=== PATIENT | female | born 1940 | race Caucasian/White ===

== ENCOUNTER 2022-12-15 11:39 | Inpatient (IN) | payer MEDICARE ==
[2022-12-15] MEDS ORDERED: FUROSEMIDE 10 MG/ML 4 ML VIAL IV STA (11:54)
--- NOTE | 2022-12-15 11:57 | ED ---
General Adult HPI - General Chief complaint: Shortness of Breath Stated complaint: SOB, leg swelling Time Seen by Provider: 12/15/22 11:50 Source: patient, family, RN notes reviewed, old records reviewed Mode of arrival: wheelchair Limitations: no limitations - History of Present Illness Initial comments: This is an 82-year-old female who presents emergency part complaining of shortness of breath per patient states his been getting worse over the last few weeks. Patient also was noticed some increased swelling to the legs. Patient denies any fever chills or cough per patient denies any history breathing problem is. Patient states she's not on any medications and has no medical problems that she knows of. Patient states that she does not go to the doctor often however and may be the reason why she is not on any medications. Patient denies any chest pain but states she has some chest tightness. Patient denies any calf tenderness. Patient denies any headache patient denies lightheadedness or dizziness. - Related Data Home Medications Medication Instructions Recorded Confirmed No Known Home Medications 12/15/22 12/15/22 Allergies Allergy/AdvReac Type Severity Reaction Status Date / Time No Known Allergies Allergy Verified 12/15/22 12:52 Review of Systems ROS Statement: Those systems with pertinent positive or pertinent negative responses have been documented in the HPI. ROS Other: All systems not noted in ROS Statement are negative. Past Medical History Past Medical History: No Reported History History of Any Multi-Drug Resistant Organisms: None Reported Past Surgical History: Breast Surgery, Hysterectomy, Tonsillectomy Past Psychological History: No Psychological Hx Reported Smoking Status: Never smoker Past Alcohol Use History: None Reported Past Drug Use History: None Reported General Exam - General Exam Comments Initial Comments: GENERAL: Patient is well-developed and well-nourished. Patient is nontoxic and well- hydrated and is in mild distress. ENT: Neck is soft and supple. No significant lymphadenopathy is noted. Oropharynx is clear. Moist mucous membranes. Neck has full range of motion without elici ting any pain. EYES: The sclera were anicteric and conjunctiva were pink and moist. Extraocular m ovements were intact and pupils were equal round and reactive to light. Eyelids were unremarkable. PULMONARY: Unlabored respirations. Good breath sounds bilaterally. No audible rales rhonchi or wheezing was noted. CARDIOVASCULAR: Patient is tachycardic at 100 beats a minute ABDOMEN: Soft and nontender with normal bowel sounds. SKIN: Skin is clear with no lesions or rashes and otherwise unremarkable. NEUROLOGIC: Patient is alert and oriented x3. Cranial nerves II through XII are grossly intact. Motor and sensory are also intact. Normal speech, volume and content. Symmetrical smile. MUSCULOSKELETAL: Normal extremities with adequate strength and full range of motion. 1+ edema LYMPHATICS: No significant lymphadenopathy is noted PSYCHIATRIC: Normal psychiatric evaluation. Limitations: no limitations Course Vital Signs 12/15/22 12/15/22 12/15/22 11:42 14:07 14:18 Temperature 98.1 F Pulse Rate 103 H 73 76 Respiratory 18 Rate Blood Pressure 182/62 O2 Sat by Pulse 96 Oximetry Medical Decision Making - Medical Decision Making I interpreted EKG. EKG shows a sinus rhythm with occasional PACs at 93 bpm WI interval is 148 QRS is under QT interval 350 QTC is 402. Patient's EKG shows no ST segment elevation or depression. Was pt. sent in by a medical professional or institution (, PA, BOXING MACHINE OPERATOR, urgent care, hospital, or retirement...) When possible be specific @ -No Did you speak to anyone other than the patient for history (EMS, parent, family, police, friend...)? What history was obtained from this source @ -No Did you review nursing and triage notes (agree or disagree)? Why? @ -I reviewed and agree with nursing and triage notes Were old charts reviewed (outside hosp., previous admission, EMS record, old EKG, old radiological studies, urgent care reports/EKG's, retirement records)? Report findings @ -No old charts were reviewed Differential Diagnosis (chest pain, altered mental status, abdominal pain women, abdominal pain men, vaginal bleeding, weakness, fever, dyspnea, syncope, headache, dizziness, GI bleed, back pain, seizure, CVA, palpatations, mental health, musculoskeletal)? @ -Differential Dyspnea: Coronary syndrome, arrhythmia, tamponade, asthma, COPD, pulmonary embolism, pneumonia, pneumothorax, pulmonary effusion, anaphylaxis, diabetic ketoacidosis, flailed chest, pulmonary contusion, diaphragmatic rupture, anemia, neuromuscular, this is not meant to be an all-inclusive list. EKG interpreted by me (3pts min.). @ -As above X-rays interpreted by me (1pt min.). @ -Chest x-ray shows signs of COPD CT interpreted by me (1pt min.). @ -None done U/S interpreted by me (1pt. min.). @ -None done What testing was considered but not performed or refused? (CT, X-rays, U/S, labs)? Why? @ -None What meds were considered but not given or refused? Why? @ -None Did you discuss the management of the patient with other professionals (professionals i.e. , PA, BOXING MACHINE OPERATOR, lab, RT, psych nurse, marriage and family social worker, trial lawyer, teacher, chief lending officer, pillowcase maker)? Give summary @ -Spoke with the [facility] agreed to admit the patient to the patient wrote admitting orders Was smoking cessation discussed for >3mins.? @ -No Was critical care preformed (if so, how long)? @ -No Were there social determinants of health that impacted care today? How? (Homelessness, low income, unemployed, alcoholism, drug addiction, transportation, low edu. Level, literacy, decrease access to med. care, skilled nursing, rehab)? @ -No Was there de-escalation of care discussed even if they declined (Discuss DNR or withdrawal of care, Hospice)? DNR status @ -No What co-morbidities impacted this encounter? (DM, HTN, Smoking, COPD, CAD, Cancer, CVA, ARF, Chemo, Hep., AIDS, mental health diagnosis, sleep apnea, morbid obesity)? @ -None Was patient admitted / discharged? Hospital course, mention meds given and route, prescriptions, significant lab abnormalities, going to OR and other pertinent info. @ -Patient while in the emergency department started having a little bit of chest discomfort. Patient is insistent that she is retaining fluid that is why her abdomen appears be here to her there patient states her legs are also very edematous. He needed legs only had a very scant amount of edema and patient appeared in no distress while in the emergency department. Patient was uncomfortable going home because of this new dyspnea and shortness of breath. Niece was also very concerned about her dyspnea because the patient does not have a primary medical care doctor or button machine operator follow-up with. Patient received Lasix in the emergency department and she urinated quite a bit. Patient also received a breathing treatment which he stated did not help her at all. Undiagnosed new problem with uncertain prognosis? @ -No Drug Therapy requiring intensive monitoring for toxicity (Heparin, Nitro, Insulin, Cardizem)? @ -No Were any procedures done? @ -No Diagnosis/symptom? @ -Dyspnea Acute, or Chronic, or Acute on Chronic? @ -Acute on chronic Uncomplicated (without systemic symptoms) or Complicated (systemic symptoms)? @ -Complicated Side effects of treatment? @ -No Exacerbation, Progression, or Severe Exacerbation? @ -No Poses a threat to life or bodily function? How? (Chest pain, [place], [place], pneumonia, PE, COPD, DKA, ARF, appy, cholecystitis, CVA, Diverticulitis, Homicidal, Suicidal, threat to staff... and all critical care pts) @ -No Diagnosis/symptom? @ -Chest pain Acute, or Chronic, or Acute on Chronic? @ -Acute Uncomplicated (without systemic symptoms) or Complicated (systemic symptoms)? @ -Complicated Side effects of treatment? @ -none Exacerbation, Progression, or Severe Exacerbation] @ -no Poses a threat to life or bodily function? @ -Yes this could lead to poor ejection fraction and lead to end organ dysfunction - Lab Data Result diagrams: 12/15/22 12:18 12/15/22 12:18 Lab Results 12/15/22 12/15/22 12/15/22 Range/Units 12:18 12:18 12:18 WBC 9.2 (3.8-10.6) k/uL RBC 4.90 (3.80-5.40) m/uL Hgb 14.8 (11.4-16.0) gm/dL Hct 42.0 (34.0-46.0) % MCV 85.6 (80.0-100.0) fL MCH 30.1 (25.0-35.0) pg MCHC 35.2 (31.0-37.0) g/dL RDW 13.0 (11.5-15.5) % Plt Count 197 (150-450) k/uL MPV 7.6 Neutrophils % 78 % Lymphocytes % 15 % Monocytes % 4 % Eosinophils % 0 % Basophils % 1 % Neutrophils # 7.2 (1.3-7.7) k/uL Lymphocytes # 1.4 (1.0-4.8) k/uL Monocytes # 0.4 (0-1.0) k/uL Eosinophils # 0.0 (0-0.7) k/uL Basophils # 0.0 (0-0.2) k/uL PT 10.5 (9.0-12.0) sec INR 1.0 (<1.2) APTT 23.3 (22.0-30.0) sec D-Dimer 0.57 (<0.60) mg/L FEU Sodium 139 (137-145) mmol/L Potassium 3.9 (3.5-5.1) mmol/L Chloride 104 (98-107) mmol/L Carbon Dioxide 30 (22-30) mmol/L Anion Gap 5 mmol/L BUN 14 (7-17) mg/dL Creatinine 0.69 (0.52-1.04) mg/dL Est GFR (CKD-EPI)AfAm >90 (>60 ml/min/1.73 sqM) Est GFR (CKD-EPI)NonAf 82 (>60 ml/min/1.73 sqM) Glucose 112 H (74-99) mg/dL Plasma Lactic Acid Bony (0.7-2.0) mmol/L Calcium 9.3 (8.4-10.2) mg/dL Magnesium 1.9 (1.6-2.3) mg/dL Total Bilirubin 0.3 (0.2-1.3) mg/dL AST 25 (14-36) U/L ALT 21 (4-34) U/L Alkaline Phosphatase 135 H (38-126) U/L Troponin I (0.000-0.034) ng/mL NT-Pro-B Natriuret Pep pg/mL Total Protein 7.2 (6.3-8.2) g/dL Albumin 4.2 (3.5-5.0) g/dL 12/15/22 12/15/22 12/15/22 Range/Units 12:18 12:18 12:18 WBC (3.8-10.6) k/uL RBC (3.80-5.40) m/uL Hgb (11.4-16.0) gm/dL Hct (34.0-46.0) % MCV (80.0-100.0) fL MCH (25.0-35.0) pg MCHC (31.0-37.0) g/dL RDW (11.5-15.5) % Plt Count (150-450) k/uL MPV Neutrophils % % Lymphocytes % % Monocytes % % Eosinophils % % Basophils % % Neutrophils # (1.3-7.7) k/uL Lymphocytes # (1.0-4.8) k/uL Monocytes # (0-1.0) k/uL Eosinophils # (0-0.7) k/uL Basophils # (0-0.2) k/uL PT (9.0-12.0) sec INR (<1.2) APTT (22.0-30.0) sec D-Dimer (<0.60) mg/L FEU Sodium (137-145) mmol/L Potassium (3.5-5.1) mmol/L Chloride (98-107) mmol/L Carbon Dioxide (22-30) mmol/L Anion Gap mmol/L BUN (7-17) mg/dL Creatinine (0.52-1.04) mg/dL Est GFR (CKD-EPI)AfAm (>60 ml/min/1.73 sqM) Est GFR (CKD-EPI)NonAf (>60 ml/min/1.73 sqM) Glucose (74-99) mg/dL Plasma Lactic Acid Bony 1.3 (0.7-2.0) mmol/L Calcium (8.4-10.2) mg/dL Magnesium (1.6-2.3) mg/dL Total Bilirubin (0.2-1.3) mg/dL AST (14-36) U/L ALT (4-34) U/L Alkaline Phosphatase (38-126) U/L Troponin I <0.012 (0.000-0.034) ng/mL NT-Pro-B Natriuret Pep 91 pg/mL Total Protein (6.3-8.2) g/dL Albumin (3.5-5.0) g/dL Disposition Clinical Impression: Dyspnea, Chest pain Disposition: ADMITTED IP TO THIS HOSP Referrals: None,Stated [Primary Care Provider] - 1-2 days Time of Disposition: 14:45
[2022-12-15 12:43] LABS: Basophils % (A) 1 %; Eosinophils % (A) 0 %; HGB 14.8 gm/dL (11.4-16.0); Lymphocytes # (A) 1.4 k/uL (1.0-4.8); Lymphocytes % (A) 15 %; MCH 30.1 pg (25.0-35.0); MCHC 35.2 g/dL (31.0-37.0); MCV 85.6 fL (80.0-100.0); Mean Platelet Volume 7.6; Monocytes # (A) 0.4 k/uL (0-1.0); Monocytes % (A) 4 %; Neutrophils # (A) 7.2 k/uL (1.3-7.7); Neutrophils % (A) 78 %; Platelet Count 197 k/uL (150-450); WBC 9.2 k/uL (3.8-10.6)
--- NOTE | 2022-12-15 12:47 | XR ---
EXAMINATION TYPE: XR chest 2V DATE OF EXAM: 12/15/2022 COMPARISON: NONE HISTORY: Difficulty in breathing. TECHNIQUE: Frontal and lateral views of the chest are obtained. FINDINGS: Background chronic emphysematous change is present. There is no focal air space opacity, p leural effusion, or pneumothorax seen. The cardiac silhouette size is within normal limits. The os seous structures are demineralized. Overlying EKG leads are seen. IMPRESSION: Chronic emphysematous change without acute pulmonary process.
[2022-12-15 12:48] LABS: ALT 21 U/L (4-34); AST 25 U/L (14-36); African American GFR (CKD) >90 (>60 ml/min/1.73 sqM); Albumin 4.2 g/dL (3.5-5.0); Alkaline Phosphatase 135 U/L (38-126); Anion Gap 5 mmol/L; Blood Urea Nitrogen 14 mg/dL (7-17); Calcium 9.3 mg/dL (8.4-10.2); Carbon Dioxide 30 mmol/L (22-30); Chloride 104 mmol/L (98-107); Glucose 112 mg/dL (74-99); Magnesium 1.9 mg/dL (1.6-2.3); Non-African American GFR(CKD) 82 (>60 ml/min/1.73 sqM); Potassium 3.9 mmol/L (3.5-5.1); Sodium 139 mmol/L (137-145); Total Bilirubin 0.3 mg/dL (0.2-1.3); Total Protein 7.2 g/dL (6.3-8.2)
[2022-12-15 12:52] LABS: Partial Thromboplastin Time 23.3 sec (22.0-30.0); Prothrombin Time 10.5 sec (9.0-12.0)
[2022-12-15] MEDS ORDERED: IPRATROPIUM-ALBUTEROL 3 ML NEB INHALATION STA (13:29)
[2022-12-15] MEDS ORDERED: ASPIRIN 81 MG PO STA (15:05)
[2022-12-15] MEDS ORDERED: NITROGLYCERIN SL TABS 0.4 MG TAB SUBLINGUAL PRN (15:05)
[2022-12-15] MEDS: NITROGLYCERIN OINT 1 INCH/GM PACKET TOPICAL SCH (18:04)
[2022-12-15] MEDS ORDERED: IPRATROPIUM-ALBUTEROL 3 ML NEB INHALATION PRN (20:35)
--- NOTE | 2022-12-15 20:35 | P.HPIM ---
History of Present Illness H&P Date: 12/15/22 Chief Complaint: Shortness of breath Patient is a 82-year-old female without significant past medical history presents to ER with complaints of shortness of breath with activity and lightheadedness for the past 1 month. She was also complaining of leg swelling bilaterally when she sits for a long time in the couch but improves with lying down. Shortness of breath associate with chest tightness and fullness. Patient also states that she gained weight for the past few weeks and is also feels like abdominal girth is increased. Complains of lightheadedness. No dizziness. Denies any GERD symptoms. No chest pain. Denied any recent illnesses. No calf tenderness. Denies any palpitations. Patient is not on follow-up with primary care physician at this time. Denies any fever or chills. No cough or sputum production. No prior history of smoking. Chest x-ray showed chronic emphysematous changes without acute pulmonary process. EKG showed sinus rhythm with occasional supraventricular premature complexes. Laboratory test showed WBC 9.2 hemoglobin 14.8 and platelets 197 D-dimer is 0.57, BUN 14 and creatinine 0.69, alk phos 135, AST 25 ALT 21 and proBNP 91. Troponin x2 negative, albumin 4.2 Review of Systems Constitutional: Patient denies any fever or chills . no Generalized weakness. Abdomen: Patient denied any nausea or vomiting or abd. pain Cardiovascular: Patient denies any chest pain or short of breath no palpitations. Intermittent leg swelling. Respiratory: patient denied any cough . no sputum production. Exertional shortness of breath Neurologic: Patient denied any numbness or tingling headache. Musculoskeletal: Patient denies any complaints of joint swelling or deformity. Skin: Negative Psychiatric: Negative Endocrine: No heat or cold intolerance. No recent weight gain. Genitourinary: No dysuria or hematuria. All other 14 point ROS negative except the above Past Medical History Past Medical History: No Reported History History of Any Multi-Drug Resistant Organisms: None Reported Past Surgical History: Breast Surgery, Hysterectomy, Tonsillectomy Past Psychological History: No Psychological Hx Reported Smoking Status: Never smoker Past Alcohol Use History: None Reported Past Drug Use History: None Reported Medications and Allergies Home Medications Medication Instructions Recorded Confirmed Type No Known Home Medications 12/15/22 12/15/22 History Allergies Allergy/AdvReac Type Severity Reaction Status Date / Time No Known Allergies Allergy Verified 12/15/22 12:52 Physical Exam Vitals: Vital Signs Temp Pulse Resp BP Pulse Ox 12/15/22 19:39 89 18 138/81 94 L 12/15/22 18:00 98 22 100/59 98 12/15/22 14:18 76 12/15/22 14:07 73 12/15/22 14:00 116 H 18 136/125 96 12/15/22 12:13 27 H 12/15/22 11:42 98.1 F 103 H 18 182/62 96 Intake and Output 12/15/22 12/15/22 12/15/22 06:59 14:59 22:59 Other: Weight 67.132 kg PHYSICAL EXAMINATION: Patient is lying in the bed comfortably, no acute distress, awake alert and oriented.. HEENT: Normocephalic. Neck is supple. Pupils reactive. Nostrils clear. Oral cavity is moist. Neck reveals no JVD, carotid bruits, or thyromegaly. CHEST EXAMINATION: Trachea is central. Symmetrical expansion. Bibasilar prolonged expiration. No wheezing or rhonchi. Nonlabored breathing.. CARDIAC: Normal S1, S2 with no gallops. No murmurs ABDOMEN: Soft. Bowel sounds present. Nontender. No organomegaly. No abdominal bruits. Extremities: reveal trace bilateral pedal edema. No clubbing or cyanosis Neurologically awake, alert, oriented x3 with well-coordinated movements. No focal deficits noted Skin: No rash or skin lesions. Psychiatric: Coperative. Nonsuicidal, Musculoskeletal: No joint swelling or deformity. Normal range of motion. Results CBC & Chem 7: 12/15/22 12:18 12/15/22 12:18 Labs: Abnormal Lab Results - Last 24 Hours (Table) 12/15/22 Range/Units 12:18 Glucose 112 H (74-99) mg/dL Alkaline Phosphatase 135 H (38-126) U/L Thrombosis Risk Factor Assmnt - DVT/VTE Prophylaxis DVT/VTE Prophylaxis: Pharmacologic Prophylaxis ordered Assessment and Plan Assessment: Exertional dyspnea and lightheadedness. Rule out cardiac etiology. Emphysematous changes in the lungs as per chest x-ray. Elevated blood pressure on admission. Improved now. DVT prophylaxis with heparin subcu Plan: Patient will be continued on telemetry monitoring. Was given a dose of IV Lasix in the ER. Patient did have improvement in the leg swelling. proBNP is 91 and D-dimer level is 0.57. Chest x-ray showing emphysematous changes and has no prior history of smoking. Started on DuoNebs as needed Ultrasound liver was ordered due to elevated alk phos level. Cardiology was consulted. Ordered 2D echocardiogram. Continue to follow clos oanh. Consider high-resolution CT if cardiac work-up is negative. Discussed with the patient and her niece at bedside in detail. Time with Patient: Greater than 30
[2022-12-15] MEDS: HEPARIN SODIUM,PORCINE/PF 5,000 UNIT/0.5 ML SYRINGE SQ SCH (23:48)
[2022-12-16] MEDS: NITROGLYCERIN OINT 1 INCH/GM PACKET TOPICAL SCH ×2 (00:51→06:10)
[2022-12-16] MEDS ORDERED: HEPARIN SODIUM,PORCINE 2,500 UNIT in SODIUM CHLORIDE 0.9% 250 ML IRRIGATION PRN (07:00)
[2022-12-16] MEDS ORDERED: HEPARIN SODIUM,PORCINE 10,000 UNIT in SODIUM CHLORIDE 0.9% 1,000 ML IRRIGATION PRN (07:00)
[2022-12-16] MEDS ORDERED: ALBUTEROL NEBULIZED 2.5 MG/3 ML INHALATION PRN (07:30)
[2022-12-16] MEDS ORDERED: IPRATROPIUM 0.5 MG/2.5 ML NEBU INHALATION PRN (07:30)
--- NOTE | 2022-12-16 07:40 | US ---
EXAMINATION TYPE: US liver DATE OF EXAM: 12/16/2022 COMPARISON: NONE CLINICAL HISTORY: elevated Alkphos. Abnormal labs, pt has no complaints at this time TECHNIQUE: Multiple sonographic images of the right upper quadrant are obtained. FINDINGS: EXAM MEASUREMENTS: Liver Length: 17.3 cm Gallbladder Wall: 0.2 cm CBD: 0.5 cm Right Kidney: 9.8 x 3.6 x 4.1 cm INTERIOR BLOCK WIRER NOTES: Pancreas: 3mm duct visualized, tail obscured by overlying bowel gas Liver: Multiple cysts scattered throughout liver, largest right medial lobe= 3.0 x 2.4 x 3.5 cm Gallbladder: Lumen clear, ?distended Evidence for sonographic Koehler's sign: No CBD: wnl Right Kidney: wnl IMPRESSION: 1. Hepatomegaly 2. Scattered hepatic cysts.
[2022-12-16] MEDS: HEPARIN SODIUM,PORCINE/PF 5,000 UNIT/0.5 ML SYRINGE SQ SCH ×3 (07:53→23:19)
[2022-12-16] MEDS ORDERED: ASPIRIN 325 MG TAB PO SCH (09:00)
[2022-12-16 09:14] LABS: African American GFR (CKD) 82 (>60 ml/min/1.73 sqM); Anion Gap 7 mmol/L; Blood Urea Nitrogen 25 mg/dL (7-17); Calcium 9.1 mg/dL (8.4-10.2); Carbon Dioxide 29 mmol/L (22-30); Chloride 104 mmol/L (98-107); Glucose 108 mg/dL (74-99); Non-African American GFR(CKD) 71 (>60 ml/min/1.73 sqM); Potassium 3.8 mmol/L (3.5-5.1); Sodium 140 mmol/L (137-145)
[2022-12-16] MEDS ORDERED: ALPRAZolam 0.5 MG TAB PO PRN ×2 (09:31→13:00)
[2022-12-16] MEDS ORDERED: ATORVASTATIN 80 MG TAB PO STA (09:31)
[2022-12-16] MEDS ORDERED: NITROGLYCERIN SL TABS 0.4 MG TAB SUBLINGUAL PRN ×2 (09:31→13:00)
[2022-12-16] MEDS ORDERED: ASPIRIN 325 MG TAB PO STA (09:31)
[2022-12-16] MEDS ORDERED: ALPRAZolam 0.25 MG TAB PO PRN ×2 (09:31→13:00)
[2022-12-16] MEDS: ASPIRIN 81 MG PO SCH (09:40)
[2022-12-16] MEDS: ISOSORBIDE MONONITRATE ER 15 MG TAB PO SCH (09:40)
[2022-12-16] MEDS: METOPROLOL TARTRATE 12.5 MG TAB PO SCH ×2 (09:40→23:18)
[2022-12-16] MEDS ORDERED: SODIUM CHLORIDE 0.9% 1,000 ML in EMPTY BAG 1 BAG IV SCH (09:45)
--- NOTE | 2022-12-16 11:51 | P.CRDCN ---
History of Present Illness History of present illness: HISTORY OF PRESENT ILLNESS: This is a 82 year old female with a past medical history significant for former nicotine dependence (patient quit smoking 20 years ago). Patient does not follow with a manager utilization. We have been asked to see the patient in consultation for shortness of breath. Patient examined at the bedside. Patient states she has been having episodes of shortness of breath over the past 2 months. The patient states that she has to walk up 2 flights of stairs to get her apartment. She states that after walking up the 2 flights of stairs she is so winded she has to sit down for 10 minutes to recover. She states she has been having episodes of chest tightness as well. She denied any radiation of the chest pain. Denied any nausea or vomiting. She states this morning when ambulating to the bathroom she was short of breath and had chest tightness. The patient also complains of lower extremity edema. She was given a one-time dose of Lasix in the emergency room with complete resolution of her lower extremity edema. The patient reports she had a stress test approximately 20 years ago which was negative to her knowledge. She denies ever having a cardiac catheterization. The patient is a former cigarette smoker and quit smoking 20 years ago. * EKG reveals sinus mechanism with no signs of acute ischemia * Chest xray chronic emphysematous changes without acute pulmonary process * Laboratory data: WBC 9.2. Hemoglobin 14.8. Platelet count 197. D-dimer 0.57. Sodium 140. Potassium 3.8. BUN 25. Creatinine 0.79. Troponin negati ve 3. ProBNP 91. * Current home cardiac medications include none REVIEW OF SYSTEMS: At the time of my exam: CONSTITUTIONAL: Denies fever or chills. HEENT: Denies blurred vision, vision changes, or eye pain. Denies hemoptysis CARDIOVASCULAR: Denies chest pain. Denies orthopnea. Denies PND. Denies palpitations RESPIRATORY: Denies shortness of breath. GASTROINTESTINAL: Denies abdominal pain. Denies nausea or vomiting. HEMATOLOGIC: Denies bleeding disorders. GENITOURINARY: Denies any blood in urine. SKIN: Denies pruitis. Denies rash. PHYSICAL EXAM: VITAL SIGNS: Reviewed. GENERAL: Well-developed in no acute distress. HEENT: Head is normocephalic. Pupils are equal, round. Sclerae anicteric. Mucous membranes of the mouth are moist. Neck supple. No JVD or thyromegaly LUNGS: Respirations even and unlabored. Lungs essentially clear to auscultation bilaterally. HEART: Regular rate and rhythm. S1 and S2 heard. ABDOMEN: Soft. Nondistended. Nontender. EXTREMITIES: Normal range of motion. No clubbing or cyanosis. Peripheral pulses intact. No lower extremity edema NEUROLOGIC: Awake and alert. Oriented x 3. ASSESSMENT: Shortness of breath and chest tightness with exertion, likely unstable angina CHF unlikely as patient had normal BNP and clinically is not in heart failure History of nicotine dependence, quit smoking 20 years ago PLAN: Obtain 2D echo to assess cardiac structure and function Add aspirin, lipitor, metoprolol, and imdur Patient to undergo cardiac cath today with Dr. Barrientos Further recommendations pending patient course Nurse practitioner note has been reviewed by physician. Signing provider agrees with the documented findings, assessment, and plan of care. Past Medical History Past Medical History: No Reported History History of Any Multi-Drug Resistant Organisms: None Reported Past Surgical History: Breast Surgery, Hysterectomy, Tonsillectomy Additional Past Surgical History / Comment(s): Cataract bilateral eyes Past Anesthesia/Blood Transfusion Reactions: No Reported Reaction Past Psychological History: No Psychological Hx Reported Smoking Status: Never smoker Past Alcohol Use History: None Reported Past Drug Use History: None Reported - Past Family History Mother Family Medical History: Diabetes Mellitus Additional Family Medical History / Comment(s): Heart problems Medications and Allergies Home Medications Medication Instructions Recorded Confirmed Type No Known Home Medications 12/15/22 12/15/22 History Allergies Allergy/AdvReac Type Severity Reaction Status Date / Time No Known Allergies Allergy Verified 12/15/22 12:52 Physical Exam Vitals: Vital Signs Temp Pulse Pulse Resp BP BP Pulse Ox 12/16/22 07:51 97.8 F 86 22 136/81 95 12/16/22 04:00 97.7 F 88 16 157/85 94 L 12/16/22 01:37 16 12/16/22 00:00 97.9 F 81 16 116/74 95 12/15/22 20:53 98.2 F 78 16 117/84 95 12/15/22 20:00 98.2 F 78 16 117/84 95 12/15/22 19:39 89 18 138/81 94 L 12/15/22 18:00 98 22 100/59 98 12/15/22 14:18 76 12/15/22 14:07 73 12/15/22 14:00 116 H 18 136/125 96 12/15/22 12:13 27 H 12/15/22 11:42 98.1 F 103 H 18 182/62 96 Intake and Output 12/15/22 12/16/22 12/16/22 22:59 06:59 14:59 Intake Total 540 Balance 540 Intake: Oral 540 Other: Voiding Method Toilet Toilet Weight 67.132 kg Results 12/15/22 12:18 12/16/22 08:19 Cardiac Enzymes 12/15/22 12/15/22 12/15/22 Range/Units 12:18 12:18 15:32 AST 25 (14-36) U/L Troponin I <0.012 <0.012 (0.000-0.034) ng/mL 12/15/22 Range/Units 19:00 AST (14-36) U/L Troponin I <0.012 (0.000-0.034) ng/mL Coagulation 12/15/22 Range/Units 12:18 PT 10.5 (9.0-12.0) sec APTT 23.3 (22.0-30.0) sec CBC 12/15/22 Range/Units 12:18 WBC 9.2 (3.8-10.6) k/uL RBC 4.90 (3.80-5.40) m/uL Hgb 14.8 (11.4-16.0) gm/dL Hct 42.0 (34.0-46.0) % Plt Count 197 (150-450) k/uL Comprehensive Metabolic Panel 12/15/22 Range/Units 12:18 Sodium 139 (137-145) mmol/L Potassium 3.9 (3.5-5.1) mmol/L Chloride 104 (98-107) mmol/L Carbon Dioxide 30 (22-30) mmol/L BUN 14 (7-17) mg/dL Creatinine 0.69 (0.52-1.04) mg/dL Glucose 112 H (74-99) mg/dL Calcium 9.3 (8.4-10.2) mg/dL AST 25 (14-36) U/L ALT 21 (4-34) U/L Alkaline Phosphatase 135 H (38-126) U/L Total Protein 7.2 (6.3-8.2) g/dL Albumin 4.2 (3.5-5.0) g/dL Current Medications Generic Name Dose Route Start Last Admin Trade Name Freq PRN Reason Stop Dose Admin Albuterol Sulfate 2.5 mg 12/16/22 07:30 Albuterol Nebulized 2.5 Mg/3 Ml INHALATION RT-QID PRN Shortness Of Breath Or Wheezing Aspirin 325 mg 12/16/22 09:00 Aspirin 325 Mg Tab PO DAILY JAMA Heparin Sodium (Porcine) 5,000 unit 12/16/22 00:00 12/16/22 07:53 Heparin Sodium,Porcine/Pf 5,000 Unit/0.5 Ml Syringe SQ 5,000 unit Q8HR JAMA Administration Ipratropium [place] 0.5 mg 12/16/22 07:30 Ipratropium 0.5 Mg/2.5 Ml Nebu INHALATION RT-QID PRN Shortness Of Breath Or Wheezing Nitroglycerin 0.4 mg 12/15/22 15:05 Nitroglycerin Sl Tabs 0.4 Mg Tab SUBLINGUAL Q5M PRN Chest Pain Nitroglycerin 1 inch 12/15/22 18:00 12/16/22 06:10 Nitroglycerin Oint 1 Inch/Gm Packet TOPICAL Not Given Q6HR JAMA Intake and Output 12/15/22 12/16/22 12/16/22 22:59 06:59 14:59 Intake Total 540 Balance 540 Intake: Oral 540 Other: Voiding Method Toilet Toilet Weight 67.132 kg 12/15/22 12:18 12/15/22 12:18
[2022-12-16 16:20] LABS: Chol/HDL Ratio 3.97 Ratio
[2022-12-16] MEDS: ATORVASTATIN 20 MG TAB PO SCH (23:19)
--- NOTE | 2022-12-17 03:04 | PN ---
PROGRESS NOTE DATE OF SERVICE: 12/16/2022 SUBJECTIVE: This 82-year-old woman was admitted with shortness of breath and chest tightness, scheduled for cardiac catheterization tomorrow. No chest pain, no palpitations, no fever. PHYSICAL EXAMINATION: VITAL SIGNS: Pulse 79, blood pressure n, respirations 18. CHEST: Clear to auscultation. CARDIOVASCULAR: S1, S2. ABDOMEN: Soft. LABORATORY DATA: Reviewed. ASSESSMENT: 1. Chest tightness and shortness of breath, rule out coronary artery disease. 2. Possible chronic obstructive pulmonary disease. 3. Hypertension. 4. Multiple medical issues. RECOMMENDATIONS: Recommended to continue current management, continue symptomatic treatment, otherwise repeat labs. Cardiac cath per Cardiology. Guarded prognosis. Further recommendations to follow. MMODL / IJN: [id number] / MTDD
[2022-12-17] MEDS ORDERED: ASPIRIN 325 MG TAB PO ONE (05:00)
[2022-12-17] MEDS ORDERED: ATORVASTATIN 80 MG TAB PO ONE (05:00)
[2022-12-17] MEDS: ASPIRIN 81 MG PO SCH (05:39)
[2022-12-17] MEDS: METOPROLOL TARTRATE 12.5 MG TAB PO SCH ×2 (05:40→21:28)
[2022-12-17] MEDS: ISOSORBIDE MONONITRATE ER 15 MG TAB PO SCH (06:41)
[2022-12-17] MEDS ORDERED: HEPARIN SODIUM,PORCINE 2,500 UNIT in SODIUM CHLORIDE 0.9% 250 ML IRRIGATION PRN (07:00)
[2022-12-17] MEDS ORDERED: HEPARIN SODIUM,PORCINE 10,000 UNIT in SODIUM CHLORIDE 0.9% 1,000 ML IRRIGATION PRN (07:00)
[2022-12-17] MEDS: HEPARIN SODIUM,PORCINE/PF 5,000 UNIT/0.5 ML SYRINGE SQ SCH ×2 (08:38→16:39)
[2022-12-17 09:08] LABS: Basophils % (A) 0 %; Eosinophils # (A) 0.1 k/uL (0-0.7); Eosinophils % (A) 2 %; HCT 39.2 % (34.0-46.0); HGB 13.4 gm/dL (11.4-16.0); Lymphocytes # (A) 1.9 k/uL (1.0-4.8); Lymphocytes % (A) 24 %; MCH 29.9 pg (25.0-35.0); MCHC 34.2 g/dL (31.0-37.0); MCV 87.4 fL (80.0-100.0); Mean Platelet Volume 7.6; Monocytes # (A) 0.6 k/uL (0-1.0); Monocytes % (A) 8 %; Neutrophils % (A) 63 %; Platelet Count 197 k/uL (150-450); RBC 4.49 m/uL (3.80-5.40); WBC 7.9 k/uL (3.8-10.6)
--- NOTE | 2022-12-17 09:43 | CA ---
Transthoracic Echo Report Name: Nancy Donovan Age: 82 Gender: F : 1940 Exam Date: 12/16/2022 10:52 Exam Location: [place] [facility] Ht (in): 59 Wt (lb): 148 Ordering Physician: Christi Robledo Attending/Referring Phys: Police Stenographer Camryn Gan RDCS Procedure CPT: Indications: LV function, CP, SOB Cardiac Hx: Technical Quality: Technically difficult study Contrast 1: Lumason Total Dose (mL): 4 Contrast 2: Total Dose (mL): MEASUREMENTS (Male / Female) Normal Values 2D ECHO LV Diastolic Diameter PLAX 3.6 cm 4.2 - 5.9 / 3.9 - 5.3 cm LV Systolic Diameter PLAX 2.8 cm IVS Diastolic Thickness 1.2 cm 0.6 - 1.0 / 0.6 - 0.9 cm LVPW Diastolic Thickness 1.2 cm 0.6 - 1.0 / 0.6 - 0.9 cm LV Relative Wall Thickness 0.6 RV Internal Dim ED PLAX 3.9 cm M-MODE Aortic Root Diameter MM 2.6 cm LA Systolic Diameter MM 3.0 cm LA Ao Ratio MM 1.1 AV Cusp Separation MM 1.7 cm DOPPLER AV Peak Velocity 137.9 cm/s AV Peak Gradient 7.6 mmHg LVOT Peak Velocity 77.7 cm/s LVOT Peak Gradient 2.4 mmHg MV Area PHT 3.0 cm??? Mitral E Point Velocity 52.5 cm/s Mitral A Point Velocity 100.7 cm/s Mitral E to A Ratio 0.5 MV Deceleration Time 249.8 ms MV E' Velocity 5.1 cm/s Mitral E to MV E' Ratio 10.3 TR Peak Velocity 233.0 cm/s TR Peak Gradient 21.7 mmHg Right Ventricular Systolic Press 25.7 mmHg FINDINGS Left Ventricle Mildly increased left ventricular wall thickness. Left ventricular cavity size normal. Normal left ventricular systolic function with no obvious regional wall motion abnormalities. Left ventricular ejection fraction is estimated at 55 %. Right Ventricle Mild right ventricular dilatation. Right ventricular systolic pressure within normal limits. Right Atrium Right atrium not well visualized. Left Atrium Normal left atrial size. Mitral Valve Structurally normal mitral valve. No mitral stenosis, regurgitation or prolapse. Aortic Valve No aortic valve stenosis or regurgitation. Tricuspid Valve Mild tricuspid regurgitation. Pulmonic Valve Trace pulmonic regurgitation. Pericardium No pericardial effusion. Echo free space anterior to the right ventricle likely represents a fat pad. Aorta Normal size aortic root and proximal ascending aorta. CONCLUSIONS Technically difficult study, echo contrast was used. Normal systolic function no significant abnormality in the Doppler exam probably a fat pad but no significant pericardial effusion Previewed by: Dr. Adrienne Cam MD (Electronically Signed) Final Date: 17 December 2022 09:43
[2022-12-17] MEDS ORDERED: VERAPAMIL 2.5 MG/ML 2 ML AMP ONE (09:50)
[2022-12-17] MEDS ORDERED: fentaNYL (PF) 50 MCG/ML 2 ML AMP ONE (09:50)
[2022-12-17] MEDS ORDERED: HEPARIN SODIUM 1,000 UN/ML (10ML VL) ONE (09:50)
[2022-12-17] MEDS ORDERED: fentaNYL (PF) 50 MCG/ML 2 ML AMP IV ONE (09:56)
[2022-12-17] MEDS ORDERED: MIDAZOLAM 2 MG/2 ML VIAL IV ONE (09:56)
[2022-12-17] MEDS ORDERED: LIDOCAINE 1% INJ 10MG/ML (5 ML VIAL-PF) SQ ONE (09:59)
[2022-12-17] MEDS ORDERED: VERAPAMIL SYRINGE (5 MG/10 ML) INTRAARTER ONE (09:59)
[2022-12-17] MEDS ORDERED: SODIUM CHLORIDE 0.9% 1,000 ML IV ONE (09:59)
[2022-12-17] MEDS ORDERED: HEPARIN SODIUM 1,000 UN/ML (10ML VL) IV ONE ×2 (10:05)
[2022-12-17] MEDS ORDERED: IOPAMIDOL-370 125ML BTL INJ ONE (10:12)
--- NOTE | 2022-12-17 10:42 | CC ---
CARDIAC CATHETERIZATION REPORT INDICATION: Unstable angina. PROCEDURE NOTE: After obtaining informed consent, left heart catheterization and coronary angiogram were performed with the right radial artery using standard Nahum catheters. The patient tolerated the procedure well without any obvious immediate complications. The patient received moderate conscious sedation. Total sedation time was 17 minutes. Right radial artery access was obtained using modified Seldinger technique. A 6-Yi sheath was placed and catheters and wires were floated into the ascending aorta under fluoroscopic guidance. The patient received verapamil and heparin per protocol and a TR band was used for hemostasis at the end of the procedure. FINDINGS: 1. HEMODYNAMICS: Left ventricular end-diastolic pressure is 16 mm. There is no significant gradient across the aortic valve. 2. LEFT VENTRICULOGRAM: Left ventriculogram is not performed. 3. ANGIOGRAPHIC DATA: a.Left main coronary artery: Left main coronary artery is a short vessel without significant stenosis. Divides into left anterior descending coronary artery and circumflex coronary artery. LAD and its branches, circumflex coronary artery and its branches are free of significant stenosis. b.Right coronary artery is a large dominant vessel and is free of significant disease. CONCLUSION: 1. Mild nonobstructive coronary artery disease. 2. Mildly elevated left ventricular end-diastolic pressures. PLAN: The patient's shortness of breath seems noncardiac in origin and we will investigate other etiological possibilities. MMODL / IJN: [id number] /
[2022-12-17] MEDS: SODIUM CHLORIDE 0.9% 1,000 ML in EMPTY BAG 1 BAG IV SCH ×2 (11:03→16:45)
[2022-12-17] MEDS ORDERED: ACETAMINOPHEN TAB 325 MG TAB PO PRN (13:16)
[2022-12-17 14:47] LABS: Albumin 3.3 g/dL (3.5-5.0); Calcium 8.7 mg/dL (8.4-10.2); Total Bilirubin 0.4 mg/dL (0.2-1.3); Total Protein 6.1 g/dL (6.3-8.2)
[2022-12-17] MEDS: IPRATROPIUM 0.5 MG/2.5 ML NEBU INHALATION SCH ×2 (15:36→19:58)
[2022-12-17] MEDS: ALBUTEROL NEBULIZED 2.5 MG/3 ML INHALATION SCH ×2 (15:36→19:58)
[2022-12-17] MEDS ORDERED: IPRATROPIUM-ALBUTEROL 3 ML NEB INHALATION SCH (16:00)
[2022-12-17] MEDS: PANTOPRAZOLE 40 MG/10 ML VIAL IVP SCH ×2 (16:38→21:28)
[2022-12-17] MEDS: methylPREDNISolone SOD SUCCI 40 MG/ML 1 ML VIAL IV SCH ×2 (16:39→17:11)
[2022-12-17] MEDS: ATORVASTATIN 20 MG TAB PO SCH (21:28)
--- NOTE | 2022-12-17 21:56 | XR ---
EXAMINATION TYPE: XR abdomen 2V DATE OF EXAM: 12/17/2022 9:41 PM INDICATION: Patient age:Female; 82 years old; Reason for study: abdominal discomfort, abdominal distention; COMPARISON: None. TECHNIQUE: Two views of the abdomen were obtained. FINDINGS: The bowel gas pattern is nonspecific without dilated loops of small or large bowel. There i s no evidence for organomegaly or pneumoperitoneum. The osseous structures are intact. No abnormal calcifications are present. Fecal material and gas are demonstrated throughout the colon and rectum. IMPRESSION: Nonspecific bowel gas pattern without radiographic evidence for acute process.
[2022-12-18] MEDS: methylPREDNISolone SOD SUCCI 40 MG/ML 1 ML VIAL IV SCH ×3 (00:16→11:39)
[2022-12-18] MEDS: HEPARIN SODIUM,PORCINE/PF 5,000 UNIT/0.5 ML SYRINGE SQ SCH ×2 (00:52→10:03)
[2022-12-18] MEDS: SODIUM CHLORIDE 0.9% 1,000 ML in EMPTY BAG 1 BAG IV SCH (03:40)
[2022-12-18] MEDS ORDERED: bisacodyL 10 MG SUPP RECTAL STA ×2 (05:22→11:34)
--- NOTE | 2022-12-18 05:31 | P.PN ---
Subjective Progress Note Date: 12/17/22 This is an 82-year-old female who was recently admitted with shortness of breath and chest tightness and being closely monitored with cardiology following. Patient scheduled to undergo cardiac catheterization today. Patient is currently nothing by mouth. Will follow-up on report. Patient is currently afebrile with no reports of shortness of breath or palpitations noted. Patient does continue to have some chest pressure. Review of systems: Constitutional: No reports of fatigue, fever, or chills Cardiovascular: reports of chest pressure and denies palpitations Respiratory: No reports of shortness of breath or cough GI: No reports of nausea, no reports of vomiting, no bowel movement : No reports of dysuria or retention Neurovascular: reports of generalized weakness All medications have been reviewed Active Medications Acetaminophen (Acetaminophen Tab 325 Mg Tab) 650 mg PO Q6HR PRN PRN Reason: Fever and/ or Pain Albuterol Sulfate (Albuterol Nebulized 2.5 Mg/3 Ml) 2.5 mg INHALATION RT-QID PRN PRN Reason: Shortness Of Breath Or Wheezing Albuterol Sulfate (Albuterol Nebulized 2.5 Mg/3 Ml) 2.5 mg INHALATION RT-QID [facility] Last Admin: 12/17/22 19:58 Dose: Not Given Alprazolam (Alprazolam 0.25 Mg Tab) 0.25 mg PO Q6HR PRN PRN Reason: Mild Anxiety Alprazolam (Alprazolam 0.5 Mg Tab) 0.5 mg PO Q6HR PRN PRN Reason: Moderate Anxiety Aspirin (Aspirin 81 Mg) 81 mg PO DAILY [facility] Last Admin: 12/17/22 05:39 Dose: Not Given Atorvastatin Calcium (Atorvastatin 20 Mg Tab) 20 mg PO HS [facility] Last Admin: 12/17/22 21:28 Dose: Not Given Heparin Sodium (Porcine) (Heparin Sodium,Porcine/Pf 5,000 Unit/0.5 Ml Syringe) 5,000 unit SQ Q8HR [facility] Last Admin: 12/18/22 00:52 Dose: 5,000 unit Sodium Chloride 1,000 ml/ IV (Solution) 1,000 mls @ 67.132 mls/hr IV .[id number] [facility] Last Admin: 12/18/22 03:40 Dose: Not Given Ipratropium Gully (Ipratropium 0.5 Mg/2.5 Ml Nebu) 0.5 mg INHALATION RT-QID PRN PRN Reason: Shortness Of Breath Or Wheezing Ipratropium Gully (Ipratropium 0.5 Mg/2.5 Ml Nebu) 0.5 mg INHALATION RT-QID [facility] Last Admin: 12/17/22 19:58 Dose: Not Given Isosorbide Mononitrate (Isosorbide Mononitrate Er 15 Mg Tab) 15 mg PO DAILY [facility] Last Admin: 12/17/22 06:41 Dose: 15 mg Methylprednisolone Sodium Succinate (Methylprednisolone Sod Succi 40 Mg/Ml 1 Ml Vial) 40 mg IV Q6HR [facility] Last Admin: 12/18/22 03:39 Dose: Not Given Metoprolol Tartrate (Metoprolol Tartrate 12.5 Mg Tab) 12.5 mg PO BID [facility] Last Admin: 12/17/22 21:28 Dose: Not Given Nitroglycerin (Nitroglycerin Sl Tabs 0.4 Mg Tab) 0.4 mg SUBLINGUAL Q5M PRN PRN Reason: Chest Pain Pantoprazole Sodium (Pantoprazole 40 Mg/10 Ml Vial) 40 mg IVP BID [facility] Last Admin: 12/17/22 21:28 Dose: Not Given Simethicone (Simethicone 40 Mg/0.6 Ml Drops 2,000 Mg/30 Ml Bottle) 40 mg PO QID [facility] PHYSICAL EXAMINATION: GENERAL: The patient is alert and oriented x4, Well developed, well nourished. HEENT: Pupils are round and equally reacting to light. EOMI. no scleral icterus. No conjunctival pallor. Normocephalic, atraumatic. No pharyngeal erythema. No thyromegaly. CARDIOVASCULAR: S1 and S2 muffled PULMONARY: diminished breath sounds bilaterally with no wheezing or rhonchi noted. ABDOMEN: soft. Nontender on exam. non-distended, normoactive bowel sounds. No palpable organomegaly. MUSCULOSKELETAL: No joint swelling or deformity. EXTREMITIES: No cyanosis, clubbing, or pedal edema. NEUROLOGICAL: Gross neurological examination did not reveal any focal deficits. Diffuse weakness SKIN: No rashes. Assessment: Chest tightness and shortness of breath, mild coronary artery disease is noted on cardiac catheterization Possible chronic obstructive pulmonary disease, acute exacerbation Hypertension anxiety GI prophylaxis DVT prophylaxis Full code Plan: Recommend to continue with current medications and management with cardiology following. Patient underwent cardiac catheterization showing some mild coronary artery disease with no stenting done recommend maximizing medical management Patient reports she continues to feel worse than when she came in with multiple concerns including shortness of breath and will obtain a chest x-ray and place the patient on DuoNeb treatments Encouraged oral intake and increased activity as tolerated Will follow-up with repeat labs and continue to monitor closely Due to Multiple complex medical issues, prognosis is guarded Possible discharge in the next 24-48 hours The impression and plan of care has been dictated by Magaly Naqvi, nurse practitioner as directed. Dr. Shane MD I have performed a history and examination and MDM of this patient, discussed the same with the dictator, and agree with the dictator's assessment and plan as written ,documented as a scribe. Based on total visit time, I have performed more than 50% of the visit. Any additional findings or plans will be noted. Objective - Vital Signs Vital signs: Vital Signs Temp 98.0 F 12/17/22 10:43 Pulse 74 12/17/22 14:41 Resp 18 12/17/22 14:41 BP 136/78 12/17/22 14:41 Pulse Ox 95 12/17/22 14:41 FiO2 21 12/17/22 07:45 Intake & Output 12/16/22 12/17/22 12/17/22 18:59 06:59 18:59 Intake Total 858 320 Output Total 500 Balance 358 320 Intake: IV 200 Oral 858 120 Output: Urine 500 Other: Voiding Method Toilet Toilet # Voids 1 2 1 - Labs CBC & Chem 7: 12/17/22 07:37 12/17/22 07:37 Labs: Abnormal Lab Results - Last 24 Hours (Table) 12/16/22 12/17/22 Range/Units 08:19 07:37 BUN 22 H (7-17) mg/dL Glucose 105 H (74-99) mg/dL Total Protein 6.1 L (6.3-8.2) g/dL Albumin 3.3 L (3.5-5.0) g/dL Triglycerides 159.00 H (0.00-149.00) mg/dL Cholesterol 223.00 H (0.00-200.00) mg/dL LDL Cholesterol, Calc 135.0 H (0.0-131.0) mg/dL
[2022-12-18 07:47] LABS: Basophils % (A) 0 %; Eosinophils # (A) 0.1 k/uL (0-0.7); Eosinophils % (A) 2 %; HCT 40.1 % (34.0-46.0); HGB 13.8 gm/dL (11.4-16.0); Lymphocytes # (A) 1.7 k/uL (1.0-4.8); Lymphocytes % (A) 23 %; MCH 30.1 pg (25.0-35.0); MCHC 34.5 g/dL (31.0-37.0); MCV 87.4 fL (80.0-100.0); Mean Platelet Volume 7.4; Monocytes # (A) 0.5 k/uL (0-1.0); Monocytes % (A) 7 %; Neutrophils # (A) 4.8 k/uL (1.3-7.7); Neutrophils % (A) 66 %; Platelet Count 194 k/uL (150-450); RBC 4.59 m/uL (3.80-5.40); RDW 12.7 % (11.5-15.5); WBC 7.2 k/uL (3.8-10.6)
[2022-12-18] MEDS: ALBUTEROL NEBULIZED 2.5 MG/3 ML INHALATION SCH ×3 (07:48→15:49)
[2022-12-18] MEDS: IPRATROPIUM 0.5 MG/2.5 ML NEBU INHALATION SCH ×3 (07:48→15:49)
[2022-12-18 08:14] LABS: African American GFR (CKD) >90 (>60 ml/min/1.73 sqM); Anion Gap 7 mmol/L; Blood Urea Nitrogen 15 mg/dL (7-17); Calcium 8.8 mg/dL (8.4-10.2); Carbon Dioxide 25 mmol/L (22-30); Chloride 108 mmol/L (98-107); Glucose 89 mg/dL (74-99); Non-African American GFR(CKD) 80 (>60 ml/min/1.73 sqM); Potassium 3.8 mmol/L (3.5-5.1); Sodium 140 mmol/L (137-145)
--- NOTE | 2022-12-18 08:27 | XR ---
EXAMINATION TYPE: XR chest 1V portable DATE OF EXAM: 12/18/2022 COMPARISON: 12/15/2022 INDICATION: Short of breath TECHNIQUE: Single frontal view of the chest is obtained. FINDINGS: The heart size is normal. The pulmonary vasculature is normal. The lungs are clear. IMPRESSION: 1. No acute pulmonary process.
[2022-12-18] MEDS: SIMETHICONE 40 MG/0.6 ML DROPS 2,000 MG/30 ML BOTTLE PO SCH ×2 (09:58→10:10)
[2022-12-18] MEDS: PANTOPRAZOLE 40 MG/10 ML VIAL IVP SCH (10:09)
[2022-12-18] MEDS: ISOSORBIDE MONONITRATE ER 15 MG TAB PO SCH (10:51)
[2022-12-18] MEDS: ASPIRIN 81 MG PO SCH (10:51)
[2022-12-18] MEDS: METOPROLOL TARTRATE 12.5 MG TAB PO SCH (10:52)
[2022-12-18 12:01] VITALS: BP 132/72; PULSE 77; RESP 18; TEMP 97.9
--- NOTE | 2022-12-18 12:21 | P.PN ---
Subjective Progress Note Date: 12/18/22 HISTORY OF PRESENT ILLNESS: This is a 82 year old female with a past medical history significant for former nicotine dependence (patient quit smoking 20 years ago). 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 We have been asked to see the patient in consultation for shortness of breath. Patient examined at the bedside. Patient states she has been having episodes of shortness of breath over the past 2 months. The patient states that she has to walk up 2 flights of stairs to get her apartment. She states that after walking up the 2 flights of stairs she is so winded she has to sit down for 10 minutes to recover. She states she has been having episodes of chest tightness as well. She denied any radiation of the chest pain. Denied any nausea or vomiting. She states this morning when ambulating to the bathroom she was short of breath and had chest tightness. The patient also complains of lower extremity edema. She was given a one-time dose of Lasix in the emergency room with complete resolution of her lower extremity edema. The patient reports she had a stress test approximately 20 years ago which was negative to her knowledge. She denies ever having a cardiac catheterization. The patient is a former cigarette smoker and quit smoking 20 years ago. * EKG reveals sinus mechanism with no signs of acute ischemia * Chest xray chronic emphysematous changes without acute pulmonary process * Laboratory data: WBC 9.2. Hemoglobin 14.8. Platelet count 197. D-dimer 0.57. Sodium 140. Potassium 3.8. BUN 25. Creatinine 0.79. Troponin negative 3. ProBNP 91. * Current home cardiac medications include none 12/18/2022 Patient underwent cardiac catheterization yesterday revealing mild nonobstructive coronary artery disease. Patient examined this morning at the bedside. Patient denies any chest pain or pressure. She denies shortness of breath. She reports significant abdominal pain this morning. Echocardiogram revealed ejection fraction 55% PHYSICAL EXAM: VITAL SIGNS: Reviewed. GENERAL: Well-developed in no acute distress. HEENT: Head is normocephalic. Pupils are equal, round. Sclerae anicteric. Mucous membranes of the mouth are moist. Neck supple. No JVD or thyromegaly LUNGS: Respirations even and unlabored. Lungs essentially clear to auscultation bilaterally. HEART: Regular rate and rhythm. S1 and S2 heard. ABDOMEN: Soft. Nondistended. Nontender. EXTREMITIES: Normal range of motion. No clubbing or cyanosis. Peripheral pulses intact. No lower extremity edema NEUROLOGIC: Awake and alert. Oriented x 3. ASSESSMENT: Shortness of breath and chest tightness with exertion, s/p cardiac catheterization revealing mild nonobstructive CAD CHF unlikely as patient had normal BNP and clinically is not in heart failure History of nicotine dependence, quit smoking 20 years ago PLAN: Recommend to continue on aspirin, Lipitor, and metoprolol. However patient is refusing all cardiac medications this morning May discontinue Imdur Workup of abdominal pain per internal medicine Further recommendations pending patient course Nurse practitioner note has been reviewed by physician. Signing provider agrees with the documented findings, assessment, and plan of care. Objective - Vital Signs Vital signs: Vital Signs Temp 97.9 F 12/18/22 11:58 Pulse 77 12/18/22 11:58 Resp 18 12/18/22 11:58 BP 132/72 12/18/22 11:58 Pulse Ox 94 L 12/18/22 11:58 FiO2 21 12/17/22 07:45 Intake & Output 12/17/22 12/18/22 12/18/22 18:59 06:59 18:59 Intake Total 320 Balance 320 Intake: IV 200 Oral 120 Other: Voiding Method Toilet Toilet Toilet # Voids 1 2 2 # Bowel Movements 0 - Labs CBC & Chem 7: 12/18/22 06:14 12/18/22 06:14 Labs: Abnormal Lab Results - Last 24 Hours (Table) 12/17/22 12/18/22 Range/Units 07:37 06:14 Chloride 108 H (98-107) mmol/L BUN 22 H (7-17) mg/dL Glucose 105 H (74-99) mg/dL Total Protein 6.1 L (6.3-8.2) g/dL Albumin 3.3 L (3.5-5.0) g/dL
--- NOTE | 2022-12-21 06:09 | P.DS ---
Providers Date of admission: 12/15/22 15:05 Expected date of discharge: 12/18/22 Attending physician: Michael Duncan Consults: 12/15/22 15:05 Consult Physician Urgent Consulting Provider: [facility] Consult Reason/Comments: Dyspnea, chest pain Do you want consulting provider notified?: Yes Primary care physician: Stated None Hospital Course: Final diagnosis Chest tightness and shortness of breath, mild coronary artery disease is noted on cardiac catheterization Mild chronic obstructive pulmonary disease, acute exacerbation Hypertension anxiety GI prophylaxis DVT prophylaxis Full code Discharge disposition Patient is being discharged in a stable condition with guarded prognosis to home. Patient will follow-up with Dr. Baumann in the outpatient setting upon discharge. Patient is to continue with current regimen as mentioned below and outpatient follow-up with cardiology as scheduled. Total time taken is greater than 35 minutes. Hospital course This is a 82-year-old female who was recently admitted with chest pain and being closely monitored. Patient was evaluated by cardiology and underwent cardiac catheterization with no interventions needed recommending medical management and close outpatient follow-up. Patient had some nausea and generalized feeling unwell and was monitored overnight. Patient reporting some constipation and will be given a suppository prior to discharge. Patient has been cleared by cardiology for discharge. Please refer to cardiology notes for further HPI. Patient instructed to follow-up with primary care provider this week as well as cardiology in the outpatient setting. Currently no reports of chest pain, shortness of breath, or palpitations. Patient is afebrile. No reports of nausea or vomiting and patient is tolerating diet. Patient will be discharged home today. Guarded prognosis Physical exam: Gen: This is a 82-year-old female who is awake, alert and oriented 3, well- developed, well-nourished HEENT: Head is atraumatic, normocephalic. Pupils equal, round. Sclerae is anicteric. NECK: Supple. No JVD. No lymphadenopathy. No thyromegaly. LUNGS: Diminished breath sounds bilaterally with no wheezes, some scattered rhonchi. No intercostal retractions. HEART: Regular rate and rhythm. No murmur. ABDOMEN: Soft. Bowel sounds are present. No masses. No tenderness. EXTREMITIES: No pedal edema. No calf tenderness. NEUROLOGICAL: Patient is awake, alert and oriented x3. Cranial nerves 2 through 12 are grossly intact. Please refer to medication reconciliation sheet for a list of medications. The impression and plan of care has been dictated by Magaly Naqvi, Nurse Practitioner as directed. Dr. Shane MD I have performed a history and examination and MDM of this patient, discussed the same with the dictator, and agree with the dictator's assessment and plan as written ,documented as a scribe. Based on total visit time, I have performed more than 50% of the visit. Patient Condition at Discharge: Fair Plan - Discharge Summary Discharge Rx Participant: No New Discharge Prescriptions: New Metoprolol Tartrate [Lopressor] 12.5 mg PO BID #60 tab Simethicone 40 mg/0.6 ml Drops [Mylicon Drops] 40 mg PO QID #7 ml Nitroglycerin Sl Tabs [Nitrostat] 0.4 mg SUBLINGUAL Q5M PRN #30 tab PRN Reason: Chest Pain Pantoprazole Sodium [Protonix] 40 mg PO DAILY #30 tab Acetaminophen Tab [Tylenol] 650 mg PO Q6HR PRN tab PRN Reason: Fever And/ Or Pain Aspirin 81 mg PO DAILY #30 tab Atorvastatin [Lipitor] 20 mg PO HS #30 tab predniSONE 10 mg PO DIRECTED #30 tab Discharge Medication List Acetaminophen Tab [Tylenol] 650 mg PO Q6HR PRN tab 12/18/22 [Rx] Aspirin 81 mg PO DAILY #30 tab 12/18/22 [Rx] Atorvastatin [Lipitor] 20 mg PO HS #30 tab 12/18/22 [Rx] Metoprolol Tartrate [Lopressor] 12.5 mg PO BID #60 tab 12/18/22 [Rx] Nitroglycerin Sl Tabs [Nitrostat] 0.4 mg SUBLINGUAL Q5M PRN #30 tab 12/18/22 [Rx] Pantoprazole Sodium [Protonix] 40 mg PO DAILY #30 tab 12/18/22 [Rx] Simethicone 40 mg/0.6 ml Drops [Mylicon Drops] 40 mg PO QID #7 ml 12/18/22 [Rx] predniSONE 10 mg PO DIRECTED #30 tab 12/18/22 [Rx] Follow up Appointment(s)/Referral(s): Rodrigo Baumann MD [STAFF PHYSICIAN] - 01/20/23 3:15 pm (The office will call you tomorrow to get more information to establish you as a patient. ) Virgilio Barrientos MD [STAFF PHYSICIAN] - 12/25/22 2:15 pm () Patient Instructions/Handouts: GERD (Gastroesophageal Reflux Disease) (DC), After Radial Heart Catheterization (GEN) Activity/Diet/Wound Care/Special Instructions: Activity Limited until follow-up Follow-up with primary care provider on discharge Follow-up cardiology outpatient in one week Continue taking medications as prescribed Recommend heart healthy small frequent meals Discharge Disposition: HOME SELF-CARE
--- NOTE | 2023-01-01 12:01 | CDI ---
Documentation Clarification Form Date: 01/01/23 From: Marina Vogt Admit Date: 12/15/2022 3:05:00 PM Patient Name: Nancy Donovan Visit Number: [id number] Discharge Date: 12/18/2022 4:38:00 PM ATTENTION: The Clinical Documentation Specialists (CDI) and [facility] Coding Staff appreciate your assistance in clarifying documentation. Please respond to the clarification below the line at the bottom and electronically sign. The CDI & [facility] Coding staff will review the response and follow-up if needed. Please note: Queries are made part of the Legal Health Record. If you have any questions, please contact the author of this message via ITS. Dr. Arturo Lynn The patients principal diagnosis the diagnosis that was chiefly responsible for the admission - has not been clearly identified and clarification is requested. The patient presented with the following- SOB, exertional dyspnea, lightheadedness, and chest tightness. History/Risk factors: patient has a history of HTN, anxiety disorder, and hx of nicotine dependence- quit 20 years ago. Clinical Indicators: Per cardiac cath "the patients SOB seems non-cardiac in origin, and we will investigate." the patients CAD was found to be mild. Patient was started on protonix and was provided education regarding GERD, but was not given a dx of GERD. Stated no GERD symptoms. Lab findings: trop < 1.012 triglycerides 150.00, cholesterol 223.00 LDL cholesterol 135.0 Chest x-ray chronic emphysematous change without acute pulmonary process Vital Signs: T: 98.1 Pulse 116 Resp Rate 27 BP 136/125 O2 96 room air Treatment: Lasix, duonebs, aspirin, Lipitor, metoprolol, protonix Cardiac Cath: mild non-obstructive CAD, mildly elevated left ventricular end- diastolic pressures In your professional opinion, can you please clarify which diagnosis, after study, was the reason chiefly responsible for the admission? [ ] Emphysema/ AE COPD [ ] GERD [ ] CAD with unstable angina [ ] CAD- unstable angina ruled out [ ] Other, please specify [ ] Unable to determine Emphysema/ AE COPD MTDD
== END 2022-12-18 16:38 | disposition home or self-care (01) | DRG 192 ==
LOC: EC 11:39 → 3SCARD 15:05
PROVIDERS: ADMIT Internal Medicine; ATTEND Internal Medicine
PROC: B2111ZZ Fluoroscopy of Multiple Coronary Arteries using Low Osmolar Contrast (ICD-10-PCS; principal; 2022-12-17 07:30)
PROC: 4A023N7 Measurement of Cardiac Sampling and Pressure, Left Heart, Percutaneous Approach (ICD-10-PCS; principal; 2022-12-17 07:30)
DX: J43.9 Emphysema, unspecified (principal); I10 Essential (primary) hypertension; I25.10 Atherosclerotic heart disease of native coronary artery without angina pectoris; I49.1 Atrial premature depolarization; K59.00 Constipation, unspecified; F41.9 Anxiety disorder, unspecified; Z87.891 Personal history of nicotine dependence
CPT/HCPCS: 36415; 71045; 71046; 74019; 76705; 80048; 80053; 80061; 83605; 83735; 83880; 84484; 85025; 85379; 85610; 85730; 93005; 93306; 93458; 94640; 94760; 96372; 96374; 99285